=== PATIENT | female | born 1965 | race Caucasian/White ===

== ENCOUNTER 2019-03-27 15:52 | Emergency (ER) | payer OTHER ==
[~2019-03-27] VITALS: Ht 157.5 cm; Wt 77.1 kg
[2019-03-27] MEDS ORDERED: SYNTHROID50 MCG (16:31)
== END 2019-03-27 20:25 | disposition home or self-care (01) ==
LOC: ER 15:52
DX: N30.80 Other cystitis without hematuria (principal); R10.2 Pelvic and perineal pain

== ENCOUNTER → 2021-05-15 | Outpatient (CLI) | payer OTHER ==
[~2021-05-15] MED LIST: SYNTHROID50 MCG
== END | disposition home or self-care (01) ==
LOC: SONOGRAMA 09:23
PROVIDERS: ATTEND Pathology Anatomic Pathology & Clinical Pathology
DX: D34 Benign neoplasm of thyroid gland (principal); E04.8 Other specified nontoxic goiter

== ENCOUNTER 2021-12-13 07:50 | Outpatient (CLI) | payer OTHER | END 2021-12-13 10:13 | disposition home or self-care (01) | LOC: MRI 07:50 | DX: M67.873 Other specified disorders of tendon, right ankle and foot (principal); M17.11 Unilateral primary osteoarthritis, right knee; M17.12 Unilateral primary osteoarthritis, left knee; K80.20 Calculus of gallbladder without cholecystitis without obstruction; R74.01 Elevation of levels of liver transaminase levels | CPT/HCPCS: 73718; 74183 ==

== ENCOUNTER 2022-12-22 16:09 | Emergency (ER) | payer OTHER ==
[~2022-12-22] VITALS: Ht 157.5 cm; Wt 79.8 kg
== END 2022-12-22 21:08 | disposition home or self-care (01) ==
LOC: ER 16:09
DX: R20.2 Paresthesia of skin (principal)